=== PATIENT | female | born 1955 | race Caucasian/White ===

== ENCOUNTER → 2023-02-11 | Outpatient (CLI) | payer MEDICARE | END | disposition home or self-care (01) | LOC: RESCLI 08:32 | PROVIDERS: ATTEND Family Medicine | DX: E78.49 Other hyperlipidemia (principal); M81.0 Age-related osteoporosis without current pathological fracture; H04.123 Dry eye syndrome of bilateral lacrimal glands; E55.9 Vitamin D deficiency, unspecified; F51.01 Primary insomnia; K59.00 Constipation, unspecified; Z88.8 Allergy status to other drugs, medicaments and biological substances; Z88.0 Allergy status to penicillin; Z82.49 Family history of ischemic heart disease and other diseases of the circulatory system; Z79.899 Other long term (current) drug therapy ==